=== PATIENT | male | born 1955 | race Asian ===

== ENCOUNTER → 2017-10-26 10:34 | Outpatient (CLI) | payer OTHER ==
[~2017-10-26 10:34] MED LIST: EQL ASPIRIN325 M1 OR; ISOS30TA17 PO; LIPITOR40 MG PO; LISI5TAB10 PO; METO50TA27 PO; NITROSTAT0.4 MG SL; PLAVIX75 MG PO
== END | disposition expired ==
LOC: AMB 10:34